=== PATIENT | female | born 1975 | race Caucasian/White ===

== ENCOUNTER 2017-07-02 16:58 | Emergency (ER) | payer MEDICAID ==
[~2017-07-02] VITALS: Ht 152.4 cm; Wt 85.4 kg
[2017-07-02 17:04] VITALS: Ht 152.4 cm; Wt 85.4 kg
[2017-07-02 19:16] VITALS: BP 147/73
== END 2017-07-02 19:16 | disposition home or self-care (01) ==
LOC: ED 16:58
DX: M77.31 Calcaneal spur, right foot (principal)
CPT/HCPCS: J1885